=== PATIENT | male | born 2000 | race Caucasian/White ===

== ENCOUNTER 2021-02-04 12:56 | Emergency (ER) | payer OTHER ==
[~2021-02-04] VITALS: Ht 172.7 cm; Wt 67.1 kg
--- NOTE | 2021-02-04 13:10 | NUR ---
To ER bed 7, c/o sob x 3 days Hx of asthma 95% on room air, aaox4, attached to monitor.
[2021-02-04] MEDS ORDERED: predniSONE 20 MG TABLET PO ONE (13:30)
[2021-02-04] MEDS ORDERED: ALBUTEROL FS 2.5 MG/3 ML VIAL.NEB NEB ONE (13:30)
[2021-02-04] MEDS ORDERED: IPRATROPIUM NEB FS 0.5 MG/2.5 ML AMPUL.NEB NEB ONE (13:30)
[2021-02-04] MEDS ORDERED: predniSONE 20 MG TABLET ONE (13:32)
[2021-02-04] MEDS ORDERED: ALBUTEROL FS 2.5 MG/3 ML VIAL.NEB ONE (13:41)
[2021-02-04] MEDS ORDERED: IPRATROPIUM NEB FS 0.5 MG/2.5 ML AMPUL.NEB ONE (13:41)
--- NOTE | 2021-02-04 13:52 | NUR ---
BREATHING TREATMENT ONGOING
[2021-02-04] MEDS ORDERED: ALBU8.5H8 INH (14:21)
[2021-02-04] MEDS ORDERED: PRED20TA PO (14:21)
--- NOTE | 2021-02-04 14:57 | NUR ---
Patient discharged to home in stable condition. Written and verbal after care instructions given. Patient verbalizes understanding of instruction.
[2021-02-04 14:58] VITALS: BP 103/71
== END 2021-02-04 14:58 | disposition home or self-care (01) ==
LOC: ER 13:07
DX: J45.901 Unspecified asthma with (acute) exacerbation (principal); Z20.822 Contact with and (suspected) exposure to COVID-19
CPT/HCPCS: 71045; 87426; 94640; 99284; C9803; J7512